=== PATIENT | female | born 1980 | race Caucasian/White ===

== ENCOUNTER 2018-06-15 03:41 | Emergency (ER) | payer MEDICAID, OTHER ==
--- NOTE | 2018-06-15 04:08 | ED Physician Chart ---
ED Chief Complaint/HPI - Patient Information Date Seen:: 06/15/18 Time Seen:: 04:02 Chief Complaint:: anxiety History of Present Illness:: 38 yr old female with hx of anxiety who took tramdol pill for the first time for menstrual cramps now feeling anxious can not stay put and some nausea no rash no cp or sob Allergies:: Allergies Allergy/AdvReac Type Severity Reaction Status Date / Time codeine Allergy Verified 06/15/18 03:51 Vitals:: Vital Signs - 8 hr 06/15/18 03:45 Temp 97.3 F HR 100 RR 18 BP 142/101 O2 Sat % 97 ED Review of Systems - Review of Systems General/Constitutional: No fever, No chills, No weight loss, No weakness, No diaphoresis, No edema, No loss of appetite Skin: No skin lesions, No rash, No bruising Head: No headache, No light-headedness Eyes: No loss of vision, No pain, No diplopia ENT: No earache, No nasal drainage, No sore throat, No tinnitus Neck: No neck pain, No swelling, No thyromegaly, No stiffness, No mass noted Cardio Vascular: No chest pain, No palpitations, No PND, No orthopnea, No edema Pulmonary: No SOB, No cough, No sputum, No wheezing GI: No nausea, No vomiting, No diarrhea, No pain, No melena, No hematochezia, No constipation, No hematemesis G/U: No dysuria, No frequency, No hematuria Musculoskeletal: No bone or joint pain, No back pain, No muscle pain Endocrine: No polyuria, No polydipsia Psychiatric: Anxiety Hematopoietic: No bruising, No lymphadenopathy Allergic/Immuno: No urticaria, No angioedema Neurological: No syncope, No focal symptoms, No weakness, No paresthesia, No headache, No seizure, No dizziness, No confusion, No vertigo ED Past Medical History - Past Medical History Past Medical History: Other (anxiety) Family Medical History - Family Member Mother History Unknown: Yes ED Physical Exam - Physical Examination General/Constitutional: Awake, Well-developed, well-nourished, Alert, No distress, GCS 15, Non-toxic appearing, Ambulatory Other Gen/Cons comments:: mild distress with anxiety Head: Atraumatic Eyes: Lids, conjuctiva normal, PERRL, EOMI Skin: Nl inspection, No rash, No skin lesions, No ecchymosis, Well hydrated, No lymphadenopathy ENMT: External ears, nose nl, Nasal exam nl, Lips, teeth, gums nl Neck: Nontender, Full ROM w/o pain, No JVD, No nuchal rigidity, No bruit, No mass, No stridor Respiratory: Nl effort/Exclusion, Clear to Auscultation, No Wheeze/Rhonchi/Rales Cardio Vascular: RRR, No murmur, gallop, rubs, NL S1 S2 GI: No tenderness/rebounding/guarding, No organomegaly, No hernia, Normal BS's, Nondistended, No mass/bruits, No McBurney tenderness : No CVA tenderness Extremities: No tenderness or effusion, Full ROM, normal strength in all extremities, No edema, Normal digits & nails Neuro/Psych: Alert/oriented, DTR's symmetric, Normal sensory exam, Normal motor strength, Judgement/insight normal, Mood normal, Normal gait, No focal deficits Misc: Normal back, No paraspinal tenderness ED Assessment - Assessment General Assessment: anxiety rxn to tramadol ingestion ED Septic Shock - . Is Septic Shock (SBP<90, OR Lactate>4 mmol\L) present?: No - <6hrs of presentation: Vital Signs: Vital Signs - 8 hr 06/15/18 03:45 Temp 97.3 F HR 100 RR 18 BP 142/101 O2 Sat % 97 ED Reassessment (Disposition) - Reassessment Reassessment:: as before - Diagnosis Diagnosis:: same - Patient Disposition Discharge/Transfer:: Home Condition at Disposition:: Stable
[2018-06-15] MEDS ORDERED: Sodium Chloride 0.9% 1,000 ML IV ONE ×2 (04:19→05:38)
[2018-06-15 04:42] LABS: URINE SOURCE CLEAN C
[2018-06-15 04:56] LABS: URINE BILIRUBIN NEGATIVE (NEGATIVE); URINE BLOOD MODERATE (NEGATIVE); URINE GLUCOSE (UA) NEGATIVE (NEGATIVE); URINE KETONE 40 mg/dL (NEGATIVE); URINE LEUKOCYTE ESTERASE NEGATIVE (NEGATIVE); URINE MICROSCOPIC INDICATED? YES; URINE NITRATE NEGATIVE (NEGATIVE); URINE PROTEIN NEGATIVE (NEGATIVE); URINE UROBILINOGEN 0.2 E.U./dL (0.2 - 1.0)
[2018-06-15 04:58] LABS: HEMATOCRIT 41.7 % (41.0-60); HEMOGLOBIN 13.7 gm/dL (12-16); MEAN CELL VOLUME 84.5 fl (81-100); MEAN CORPUSCULAR HEMOGLOBIN 27.8 pg (27.0-31.0); MEAN CORPUSCULAR HGB CONC 32.9 pg (28.0-36.0); MEAN PLATELET VOLUME 9.2 fl; PLATELET COUNT 293 Th/cmm (150-400); RED BLOOD COUNT 4.93 Mil/cmm (3.80-5.10)
[2018-06-15 04:59] LABS: URINE COLOR RED
[2018-06-15 05:00] LABS: URINE CLARITY HAZY (CLEAR)
[2018-06-15 05:03] LABS: URINE BACTERIA FEW /hpf (NONE SEEN); URINE EPITHELIAL CELLS FEW /lpf (FEW); URINE RBC 25-50 /hpf (0-5); URINE WBC 0-2 /hpf (0-5)
[2018-06-15 05:04] LABS: WHITE BLOOD COUNT 15.8 Th/cmm (4.8-10.8)
[2018-06-15 05:30] LABS: ALB/GLOB RATIO 1.5 (1.0-1.8); ALBUMIN 4.9 gm/dL (3.7-5.3); ALKALINE PHOSPHATASE 49 U/L (34-104); ANION GAP 19.1 (7.0-16.0); BILIRUBIN,TOTAL 0.4 mg/dL (0.3-1.0); BUN - UREA NITROGEN 12 mg/dL (7-25); CALCIUM SERUM 10.4 mg/dL (8.6-10.3); CARBON DIOXIDE 20.6 mEq/L (21.0-31.0); CHLORIDE 103 mEq/L (98-107); CREATININE - SERUM 0.6 mg/dL (0.6-1.2); GFR AFRICAN-AMERICAN > 60.0 ml/min (>90); GFR NON AFRICAN-AMERICAN > 60.0 ml/min; GLUCOSE 154 mg/dL (70-105); POTASSIUM SERUM 3.7 mEq/L (3.5-5.1); SGOT 13 U/L (13-39); SGPT/ALT 9 U/L (7-52); SODIUM SERUM 139 mEq/L (136-145); TOTAL PROTEIN,SERUM 8.1 gm/dL (6.0-8.3)
[2018-06-15 05:31] LABS: AMYLASE SERUM 46 U/L (29-103); LIPASE 8 U/L (11-82)
[2018-06-15] MEDS ORDERED: Lactated Ringer 1,000 ML IV ONE (05:34)
[2018-06-15 05:56] LABS: BAND NEUTROPHILE 2 % (0-10); LYMPHOCYTE 8 % (20-50); MONOCYTE 3 % (2-10); NEUTROPHILS 87 % (40-80); PLATELET ESTIMATE ADEQUATE (NORMAL)
[2018-06-15 06:25] LABS: AMPHETAMINE URINE NEGATIVE (NEGATIVE); BARBITURATES URINE NEGATIVE (NEGATIVE); BENZODIAZEPINES QUAL URINE NEGATIVE (NEGATIVE); CANNABINOID THC NEGATIVE (NEGATIVE); COCAINE METABOLITE QUAL URINE NEGATIVE (NEGATIVE); METHADONE URINE NEGATIVE (NEGATIVE); METHAMPHETAMINES QUAL URINE NEGATIVE (NEGATIVE); OPIATES (MORPHINE) QUAL. URINE NEGATIVE (NEGATIVE); PHENCYCLIDINE (PCP) URINE NEGATIVE (NEGATIVE); TRICYCLICS (TCA) QUAL. URINE NEGATIVE (NEGATIVE)
[2018-06-15 08:05] LABS: % BASOPHILS 0.6 % (0.0-2.0); % EOSINOPHILS 0.2 % (0.0-5.0); % LYMPHOCYTES 9.7 % (20.0-50.0); % MONOCYTES 3.4 % (2.0-10.0); % NEUTROPHILS 86.1 % (40.0-80.0); BASOPHILE ABSOLUTE 0.1 Th/cumm (0-0.2); HEMATOCRIT 37.3 % (41.0-60); HEMOGLOBIN 12.2 gm/dL (12-16); LYMPHOCYTE ABSOLUTE 1.1 Th/cmm (1.5-3.0); MEAN CELL VOLUME 85.3 fl (81-100); MEAN CORPUSCULAR HGB CONC 32.8 pg (28.0-36.0); MEAN PLATELET VOLUME 8.7 fl; MONOCYTE ABSOLUTE 0.4 Th/cmm (0.3-1.0); NEUTROPHILE ABSOLUTE 9.6 Th/cmm (1.8-8.0); PLATELET COUNT 245 Th/cmm (150-400); RED BLOOD COUNT 4.37 Mil/cmm (3.80-5.10); RED CELL DISTRIBUTION WIDTH 13.8 % (11.5-20.0); WHITE BLOOD COUNT 11.2 Th/cmm (4.8-10.8)
== END 2018-06-15 08:45 | disposition home or self-care (01) ==
LOC: ER 03:41
DX: E86.0 Dehydration (principal); N83.209 Unspecified ovarian cyst, unspecified side; F41.1 Generalized anxiety disorder; Z88.5 Allergy status to narcotic agent
CPT/HCPCS: 99283; 96361; 96374; 96376; 36415; 83605 ×2; 80307; 85007; 85025 ×2; 87086; 81001; 82150; 81025; 83690; 80053; 87040; J2405 ×2; J7030; Z7502